=== PATIENT | female | born 1985 | race Caucasian/White ===

== ENCOUNTER 2018-02-05 18:35 | Emergency (ER) | payer MEDICAID ==
[~2018-02-05] VITALS: Ht 170.2 cm; Wt 83.0 kg
[~2018-02-05 18:35] MED LIST: FLUO40CA9 PO; METFORMIN HCL PO
[2018-02-05] MEDS ORDERED: LORazepam 1MG TABLET PO ONE (19:30)
[2018-02-05] MEDS ORDERED: LORazepam 1MG TABLET ONE (19:33)
[2018-02-05 19:35] LABS: BASOPHILS # (AUTO) 0.02 x10^3/uL (0-0.1); BASOPHILS % (AUTO) 0 % (0-1); EOSINOPHILS # (AUTO) 0.13 x10^3/uL (0-0.4); EOSINOPHILS % (AUTO) 2 % (1-7); LYMPHOCYTES # (AUTO) 1.37 x10^3/uL (1-3.4); LYMPHOCYTES % (AUTO) 17 % (22-44); MD NO; MEAN CORPUSCULAR HEMOGLOBIN 34.8 pg (27.0-34.8); MEAN CORPUSCULAR HGB CONC 34.9 g/dL (32.4-35.8); MEAN CORPUSCULAR VOLUME 99.6 fL (80-100); MEAN PLATELET VOLUME 8.3 fL (7.4-10.4); MONOCYTES # (AUTO) 0.54 x10^3/uL (0.2-0.8); MONOCYTES % (AUTO) 7 % (2-9); NEUTROPHILS # (AUTO) 5.89 x10^3/uL (1.8-6.8); NEUTROPHILS % (AUTO) 74 % (42-75); PLATELET COUNT 226 x10^3/uL (130-400); RED BLOOD COUNT 4.02 x10^6/uL (3.82-5.3); RED CELL DISTRIBUTION WIDTH 11.8 % (9.6-15.2)
[2018-02-05 19:48] LABS: ANION GAP 9 mmol/L (5-15); CALCIUM 8.2 mg/dL (8.5-10.1); CHLORIDE 111 mmol/L (98-107)
[2018-02-05 19:54] LABS: ALANINE AMINOTRANSFERASE 85 U/L (12-78); ALKALINE PHOSPHATASE 172 U/L (45-117); CREATININE 0.43 mg/dL (0.55-1.02); TOTAL PROTEIN 6.1 g/dL (6.4-8.2); TROPONIN I < 0.015 ng/mL (0.000-0.045)
[2018-02-05 20:06] VITALS: BP 120/61
== END 2018-02-05 20:54 | disposition home or self-care (01) ==
LOC: ED 20:48
DX: R07.9 Chest pain, unspecified (principal); F41.1 Generalized anxiety disorder; M25.571 Pain in right ankle and joints of right foot; M25.572 Pain in left ankle and joints of left foot; B19.10 Unspecified viral hepatitis B without hepatic coma
CPT/HCPCS: 36415; 71045; 80053; 83880; 84484; 85025; 93005; 99284